=== PATIENT | male | born 1955 | race Caucasian/White ===

== ENCOUNTER 2016-12-24 09:36 | Emergency (ER) | payer BC ==
--- NOTE | 2016-12-24 10:13 | Emergency Department Record ---
History of Present Illness - General Chief Complaint: Chest Pain Stated Complaint: CHEST PAIN Time Seen by Provider: 12/24/16 09:54 Source: Patient Mode of Arrival: Ambulatory Limitations: No limitations - History of Present Illness Initial Comments: The patient is here due to an 18 hour hx of vague chest aching off and on. He denies any SOB, sweating, or ABNER with the pain but has had some arm tingling and lower back pain. The pain also is mild and aching but there is no radiation down the legs and no leg numbness or weakness. The patient states he had a heart attack at age 31 but never stayed in the hospital for it and never had any F/U for it. He has a 1ppd tobacco hx for 40 years. MD Complaint: Chest pain Onset/Timin -: Hour(s) Onset: Other Pain Location: Left chest Severity: Mild Quality: Aching Consistency: Intermittent Improves With: Rest Worsens With: Movement - Related Data Home Medications Medication Instructions Recorded Confirmed Last Taken Aspirin [Adult Low Dose Aspirin EC] 81 mg PO DAILY 12/24/16 12/24/16 12/23/16 Omeprazole [Prilosec] 20 mg PO DAILY 12/24/16 12/24/16 12/23/16 Allergies Allergy/AdvReac Type Severity Reaction Status Date / Time codeine Allergy heart Verified 12/24/16 09:41 palpatations Travel Screening - Travel/Exposure Within Last 30 Days Have you traveled within the last 30 days?: No - Travel/Exposure Within Last Year Have you traveled outside the [place] in the last year?: No - Additonal Travel Details Have you been exposed to anyone with a communicable illness?: No - Travel Symptoms Symptom Screening: None Review of Systems Constitutional: Denies: Chills, Fever Eyes: Denies: Eye discharge ENT: Denies: Congestion Respiratory: Denies: Cough, Dyspnea Past Medical History - SOCIAL HISTORY Smoking Status: Current every day smoker Alcohol Use: Occasional Drug Use: None - RESPIRATORY Hx Respiratory Disorders: No - CARDIOVASCULAR Hx Cardio Disorders: Yes Hx Heart Attack: Yes (at age 31) - NEURO Hx Neuro Disorders: No - GI Hx GI Disorders: Yes Hx Reflux: Yes - Hx Genitourinary Disorders: No - ENDOCRINE Hx Endocrine Disorders: No - MUSCULOSKELETAL Hx Musculoskeletal Disorders: No - PSYCH Hx Psych Problems: No - HEMATOLOGY/ONCOLOGY Hx Hematology/Oncology Disorders: No Family Medical History Any Significant Family History?: Yes Hx Cancer: Mother Hx Heart Disease: Father Physical Exam - General General Appearance: Alert, Oriented x3, Cooperative, No acute distress - Head Head exam: Atraumatic, Normocephalic, Normal inspection - Eye Eye exam: Normal appearance, PERRL, EOMI - ENT Throat exam: Normal inspection. negative: Tonsillar erythema, Tonsillar exudate - Neck Neck exam: Normal inspection, Full ROM. negative: Tenderness - Respiratory Respiratory exam: Normal lung sounds bilaterally. negative: Respiratory distress - Cardiovascular Cardiovascular Exam: Regular rate, Normal rhythm, Normal heart sounds - GI/Abdominal GI/Abdominal exam: Soft, Normal bowel sounds. negative: Tenderness - Extremities Extremities exam: Normal inspection, Full ROM, Normal capillary refill, Other ( raidal pulses 2+ and equal.). negative: Tenderness - Neurological Neurological exam: Alert, Normal gait, Oriented X3, Reflexes normal. negative: Abnormal gait, Motor sensory deficit - Psychiatric Psychiatric exam: negative: Anxious Course Vital Signs 12/24/16 09:46 Temperature 99 F Pulse Rate 96 H Respiratory 18 Rate Blood Pressure 231/147 Pulse Ox 99 - Reevaluation(s) Reevaluation #1: The patient is resting comfortably with no chest pain at this time. 12/24/16 10:47 Reevaluation #2: The patient is doing very well at this time. He is resting comfortably with no pain or discomfort. I did explain to him that I would like to admit him to a larger hospital for a heart catheterization and he would like to go to [place] for admission. 12/24/16 11:10 Reevaluation #3: I did discuss the case with Dr. Conway in the ER at [facility] who does accept the patient in an ER to ER transfer. The patient is refusing an ambulance ride due to cost. I explained to him that by NOT taking the ambulance he could leave here and have an AK, stroke, become disabled and even on the way to [facility]. By NOT taking the ambulance we could not be held liable for not transporting him because he is refusing the ambulance. The patient understands and accepts the risks. 12/24/16 12:25 Medical Decision Making - Data Complexity MDM Data: Labs Ordered and/or Reviewed, X-Ray Ordered and/or Reviewed, EKG Ordered and/or Reviewed - Lab Data Result diagrams: 12/24/16 10:00 12/24/16 10:00 - EKG Data -: EKG Interpreted by Me EKG: No Acute Changes (NSR with LVH with repolarization abnormalities.) - Radiology Data Radiology results: Report reviewed (CXR: Ectatic and tortuous aorta, unchanged from CT in 2010.) Disposition Disposition: Transfer Clinical Impression: Unstable angina Disposition: Acute Care Hospital Transfer Transfer To: [facility] Reason For Transfer: Cardiac Accepting Physician: Fill Time Discussed w/Accepting Physician: 12:27 Condition: (2) Stable Forms: Patient Portal Access Time of Disposition: 12:27 Quality - Quality Measures Quality Measures: N/A - Blood Pressure Screening View Details: Yes Does Patient Have Any of the Following: No Blood Pressure Classification: Hypertensive Reading Systolic Measurement: 182 Diastolic Measurement: 112 Screening for High Blood Pressure: < First Hypertensive BP, F/U Documented > [ [id number]] First Hypertensive Follow-up Interventions: Follow-up with rescreen GT 1 day and LT 4 weeks.
[2016-12-24 10:26] LABS: BASO % 0.6 % (0-6); EOS % 2.1 % (0-6); GRAN % 65.6 % (47-80); HEMATOCRIT 47.4 % (42.0-52.0); HEMOGLOBIN 15.8 gm/dl (14.0-18.0); MEAN CELL VOLUME 96.1 fl (81-97); MEAN CORPUSCULAR HGB CONC 33.3 g/dl (32-36); MEAN PLATELET VOLUME 10.1 fl (7.4-10.4); MONO % 10.7 % (0-9); PLATELET COUNT 316 K/uL (130-400); RED BLOOD COUNT 4.93 M/uL (4.40-5.70); RED CELL DISTRIBUTION WIDTH 13.9 % (11.5-14.5); WHITE BLOOD COUNT W/O DIFF 10.1 K/uL (4.2-12.2)
[2016-12-24 10:27] LABS: URINE APPEARANCE CLEAR; URINE BILIRUBIN NEGATIVE (NEGATIVE); URINE BLOOD TRACE-I (NEGATIVE); URINE COLOR STRAW; URINE GLUCOSE (UA) NEGATIVE (NEGATIVE); URINE KETONE NEGATIVE (NEGATIVE); URINE LEUKOCYTE ESTERASE NEGATIVE (NEGATIVE); URINE NITRITE NEGATIVE (NEGATIVE); URINE PROTEIN NEGATIVE (NEGATIVE); URINE UROBILINOGEN 0.2 E.U./dL (0.20 - 1.00)
[2016-12-24 10:39] LABS: INR 0.95; PARTIAL THROMBOPLASTIN TIME 30.9 SECONDS (24.5-39.1); PROTHROMBIN TIME (PATIENT) 10.3 SECONDS (9.5-12.1)
[2016-12-24 10:46] LABS: CKMB 2.2 ng/mL (<6.73)
[2016-12-24] MEDS ORDERED: ACETAMINOPHEN 325 MG TAB PO ONE (10:58)
[2016-12-24 11:03] LABS: TROPONIN I < 0.30 ng/mL (0.00-0.300)
[2016-12-24] MEDS ORDERED: ASPIRIN 325 MG TABLET PO ONE (11:07)
[2016-12-24 11:09] LABS: URINE BACTERIA FEW; URINE EPITHELIAL CELLS 0 - 2 (FEW); URINE RBC 0 - 2 (NONE SEEN); URINE WBC 0 - 2 (0-2/hpf)
[2016-12-24] MEDS ORDERED: METOPROLOL TART 5 MG/5 ML VIAL IV ONE (11:10)
[2016-12-24 12:00] LABS: BLOOD UREA NITROGEN 18 mg/dL (8-23); CREATININE 0.7 mg/dL (0.7-1.2); EST GLOMERULAR FILTRATION RATE > 60 mL/min
[2016-12-24 12:03] LABS: GLUCOSE,RANDOM 96 mg/dL (74-109)
[2016-12-24 14:58] LABS: CREATINE PHOSPHOKINASE 80 U/L (39-308)
--- NOTE | 2016-12-25 13:20 | RADIOLOGY REPORT ---
EXAM: CHEST HISTORY: MID STERNAL CHEST PAIN FOR ONE DAY. LEFT ARM TINGLING. TECHNIQUE: A single view of the chest was obtained. Comparison: None. FINDINGS: The heart is borderline enlarged, but this may be accentuated by the AP position. The mediastinum is borderline prominent. This may be artifactually induced by AP positioning. If there is concern for mediastinal mass or aortic aneurysm, erect PA view of the chest and/or chest CT suggested. No infiltrate or vascular congestion. No pneumothorax. IMPRESSION: 1. THERE IS SOME PROMINENCE OF THE MEDIASTINUM WHICH MAY BE ARTIFACTUAL DUE TO THE AP POSITIONING. IF THERE IS CONCERN FOR MEDIASTINAL MASS OR AORTIC ANEURYSM OR AORTIC DISSECTION, PA VIEW OF THE CHEST AND/OR CHEST CT MAY BE OF BENEFIT. 2. BORDERLINE CARDIOMEGALY. 3. OTHERWISE, UNREMARKABLE CHEST EXAMINATION. JOB NUMBER: [id number] AND [id number] [facility]
--- NOTE | 2016-12-25 13:22 | RADIOLOGY REPORT ---
EXAM: CHEST HISTORY: CHEST PAIN, LEFT ARM TINGLING FOR ONE DAY. TECHNIQUE: Two views of the chest were obtained. Comparison: Chest x-ray 12/24/16 and prior CTA of the aorta dated 05/02/10. FINDINGS: The heart is not enlarged. The aorta is tortuous and somewhat ectatic, but no change from the prior CT angiogram in 2010. No infiltrate or vascular congestion. IMPRESSION: 1. THE AORTA IS SOMEWHAT TORTUOUS AND ECTATIC, BUT UNCHANGED FROM THE PRIOR CT SCAN FROM 2010. 2. NO ACUTE PROCESS SEEN. JOB [facility]BER: [id number] [facility]
== END 2016-12-24 12:37 | disposition short-term general hospital (02) ==
LOC: ER 09:36
DX: I20.0 Unstable angina (principal); R20.2 Paresthesia of skin; M54.5 Low back pain; I25.2 Old myocardial infarction; F17.210 Nicotine dependence, cigarettes, uncomplicated
CPT/HCPCS: 71010; 71020; 80048; 81001; 82550; 82553; 84484; 85025; 85379; 85610; 85730; 93005; 93010; 96374; 99285